=== PATIENT | female | born 1985 | race Caucasian/White ===

== ENCOUNTER → 2016-11-09 | Outpatient (CLI) | payer OTHER ==
[~2016-11-09] MED LIST: CIPRO 500MG TA500 MG PO; CLARITIN-D 10 M1 T24; DARVOCET-N 1001 EACH PO; HYDROCODONE/APA1 TA8 PO; MECLIZINE 25MG25 MG PO; MOTRIN 600MG.600 MG PO; NAPROXEN SODIU500 MG PO; SPRINTEC 35 MCG1 TAB PO; VOLTAREN75 MG PO; ZOFRAN ODT4 MG PO
--- NOTE | 2016-11-09 16:08 | RADIOLOGY REPORT PS360 ---
CT ABD PELVIS W/O CONTRAST HISTORY: FLANK PAIN left flank pain Patient Age: 31 years: Female Ordering Physician: Meena Cuellar APRN TECHNIQUE: Helical CT scans abdomen pelvis with no oral nor IV contrast utilized Sagittal coronal reconstructions on CT workstation. COMPARISON :Previous CT abdomen and pelvis 08/26/2016 FINDINGS Lung bases are clear with no active disease. Stable Small calcified granulomas at right and left lung base. . Heart normal size. Small hiatal hernia noted with upper normal thickening distal esophagus. Abdomen/pelvis. No or IV contrast. Liver. Unremarkable. Spleen unremarkable. Adrenals unremarkable. Pancreas Limited but unremarkable unremarkable on this noncontrast study. Gallbladder contracted. Kidneys. Small punctate nonobstructive calculi bilaterally. RIGHT KIDNEY. 3.5 mm x 4 mm nonobstructive slightly linear calculus lower pole calyx right kidney... 3 mm calculus posterior midportion right kidney . Right ureter unremarkable. LEFT KIDNEY Small nonobstructive 2.5 mm punctate calculus lower pole-unchanged. Small less than 3 mm calculus at posterior aspect mid/lower left kidney. Axial slice 35 No hydronephrosis. Left ureter appears satisfactory no calculi along the course of left ureter. minimal calcification at the left iliac artery adjacent to left ureter.. PELVIS Bilateral tubal ligation clips. Masses ovaries normal, moderate size. Uterus normal size and resides just the right of midline. Urinary bladder. No calculi no wall thickening. No free fluid in cul-de-sac. . GI tract. Prominent, increased stool is seen at the right colon and hepatic flexure. Generous gas at the transverse colon to the splenic flexure. Moderate stool and gas at the rectosigmoid and left colon. Small bowel. No bowel dilatation or obstruction. . no evidence of appendicitis. IMPRESSION 1. No acute findings abdomen pelvisq 2. No obstructive uropathy evident. 3. Small punctate nonobstructive calculi in both kidneys but no hydronephrosis or current urinary tract obstruction evident.-. Attention directed towards Left Kidney. Left ureter appears normal.Urinary bladder unremarkable. 4. 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 No good evidence of appendicitis. Prominent stool right colon with prominent gas transverse colon to the splenic flexure otherwise noted.:
== END ==
LOC: RAD 14:57
DX: R10.9 Unspecified abdominal pain (principal)

== ENCOUNTER 2017-01-15 17:58 | Outpatient (CLI) | payer OTHER ==
[~2017-01-15] VITALS: Ht 167.6 cm; Wt 74.8 kg
[2017-01-15 18:46] VITALS: BP 125/73
== END 2017-01-15 19:20 | disposition home or self-care (01) ==
LOC: COP 17:58
DX: N20.0 Calculus of kidney (principal)